=== PATIENT | female | born 1960 | race Caucasian/White ===

== ENCOUNTER 2016-12-28 08:12 | Inpatient (IN) ==
--- NOTE | 2016-11-22 15:16 | EKG Report ---
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
--- NOTE | 2016-11-22 15:32 | XRay Report ---
XR chest 2V Indication: Respiratory preoperative evaluation Comparison: 30 May 2016 Findings: The heart and mediastinum are stable in size and configuration. Moderate size hiatal hernia is present similar to previous study. The pulmonary vascularity is normal in caliber. Lung volumes are increased with prominent bronchial markings. No lung infiltrates, effusions, pneumothorax or other abnormality is demonstrated. Impression: Chronic lung changes. No acute process or significant change. PROCEDURE INTERPRETED AT [facility] DEPARTMENT OF RADIOLOGY Final Report Signed by: Dr. Master Ventura
--- NOTE | 2016-12-28 10:05 | History and Physical Update ---
History and Physical Update - History and Physical H&P was reviewed, the patient examined and there: are no changes in the patients condition since last H&P was completed. - Physical Exam History and Physical Changes: The H&P has an error in that on physical exam it does not describe the mass in the right breast which is replacing most of the central breast. There is deformity of the nipple but no obvious ulceration. The mass is movable. It is about the size of a grapefruit
[2016-12-28] MEDS ORDERED: MINERAL OIL/PETROLATUM OPH OINT 3.5 GM TUBE ONE (10:13)
[2016-12-28] MEDS ORDERED: LIDOCAINE 100 MG/5 ML SYRINGE ONE (10:13)
[2016-12-28] MEDS: LACTATED RINGERS 1,000 ML IV SCH ×2 (10:13→12:06)
[2016-12-28] MEDS ORDERED: ONDANSETRON 4 MG/2 ML VIAL ONE (10:13)
[2016-12-28] MEDS ORDERED: PROPOFOL 200 MG/20 ML VIAL IV ONE (10:13)
--- NOTE | 2016-12-28 12:29 | Operative Note ---
Date of procedure: 12/28/16 Pre-op diagnosis: Large locally advanced right breast cancer 11 x 13 cm Post-op diagnosis: same Procedure: Right modified radical mastectomy (22 modifier) Findings and technique: After informed consent was obtained the patient was brought the operating room placed in supine position. After successful induction of general anesthesia the patient's right chest axilla and upper extremity were prepped and draped in usual sterile fashion. Marking pen was used to juan carlos out the planned ellipse incorporated a large amount of the breast skin and the tumor which measured at 11 x 13 cm. There was no clear ulceration but the nipple was severely deformed and had crusting exudate on it. An elliptical incision was made incorporating most of the breast and flaps were made made superiorly to the level of the clavicle and inferiorly to well beneath the inframammary fold to the rectus muscle. The breast was reflected off of the pectoralis major muscle and some of the muscle was included with the dissection so that I can make sure that I had a good margin posteriorly. Dissection was then carried into the axilla where the patient was not noted to have large lymph nodes but she had very hard matted nodes extending up to behind the pectoralis minor muscle. These lymphatics were divided and dissection carried along the inferior aspect of the axillary vein dividing lymphatics between hemoclips. The thoracodorsal vessels and nerves were identified along the long thoracic nerve and intercostal brachial nerve. All of the structures were identified and preserved and dissection carried out removing the matted lymph node package out of the axillary space. This was removed en bloc with the tumor and breast and sent for permanent section. This area was liberally irrigated. Good hemostasis obtained in the lymph node bed coated with Tisseel tissue sealant. I then placed 10 mm JOHNNIE drains one in the axilla and one beneath the superior flap and I had undermined more than usual to get closure of the large defect. This was done with a deep layer of interrupted 2-0 Vicryl subcutaneous and subdermal suture and the skin with skin clips. She appeared to tolerate the procedure well. This was a much more difficult procedure than usual because of the large size of the tumor and the need to take muscle and the difficulty of the axillary dissection. These factors added to the complexity of the case and also probably doubled the expected operative time. Anesthesia: GETA Surgeon / Physician: Kaleb Diggs III. Estimated blood loss: other (75 mL) Specimens: other (Right breast and axillary contents) Condition: stable Disposition: PACU Discharge Plan - Discharge Medications No Action Folic Acid Tab 800 mcg PO DAILY FLUoxetine [PROzac] 20 mg PO DAILY predniSONE TAB [PredniSONE] 20 mg PO DAILY Zolpidem Tartrate [Ambien] 10 mg PO BEDTIME PRN PRN Reason: Sleep Eculizumab [Soliris] 300 mg IV DIRECTED HYDROcodone/ACETAMIN 7.5-325 [[place] 7.5-325] 1 - 2 tablet PO Q4H PRN #60 tablet PRN Reason: Pain Moderate (4-7) Rivaroxaban [Xarelto] 20 mg PO DAILY W/SUPPER Anastrozole 1 mg PO DAILY - Follow Up or Referral - Forms/Instructions
[2016-12-28] MEDS ORDERED: HYDROmorphone 2 MG/1 ML VIAL IV PRN (12:32)
[2016-12-28] MEDS ORDERED: ONDANSETRON 4 MG/2 ML VIAL IV PRN (12:32)
[2016-12-28] MEDS: MORPHINE PCA 30 MG/30 ML SYRINGE IV SCH (12:41)
--- NOTE | 2016-12-28 16:17 | Anesthesia Post-Op ---
Anesthesia Post OP - Post Ansesthetic Evaluation Patient seen in post op: Yes Resp: within normal limits CV: within normal limits Mental: within normal limits Temp: within normal limits [id number]: within normal limits Nausea and Vomiting: within normal limits Pain: within normal limits
[2016-12-28] MEDS: ceFAZolin 2,000 MG in PREMIX 1 EACH IV SCH (19:03)
[2016-12-28] MEDS: ONDANSETRON 4 MG/2 ML VIAL IV PRN (22:42)
[2016-12-29] MEDS: ceFAZolin 2,000 MG in PREMIX 1 EACH IV SCH (02:15)
[2016-12-29 06:56] LABS: Basophils % 0.4 % (0.0-0.8); Eosinophils % 0.4 % (0.00-10.9); Hematocrit 23.1 VOL% (35.7-47.0); Immature Granulocytes % 0.4 %; Immature Granulocytes Absolute 0.02 #; Lymphocytes # 2.5 10*3/uL (1.4-4.0); Mean Corpuscular HGB Conc 30.3 GM/DL (32-36); Mean Corpuscular Hemoglobin 37 PG (27-34); Mean Corpuscular Volume 122.9 FL (87-102); Mean Platelet Volume 12.4 FL (9.6-12.0); Monocytes # 0.4 10*3/uL (0.11-0.8); Monocytes % 7.6 % (1.7-12.7); NRBC # 1.62 10*3/uL; Neutrophils # 2.5 10*3/uL (1.4-7.4); Neutrophils % 45.2 % (38.7-73.9); Red Blood Count 1.88 MC/CUMM (3.8-5.5); Red Cell Distribution Width 20.4 % (9.3-17.3); White Blood Count 5.5 T/CUMM (4-12)
[2016-12-29 07:07] LABS: Platelet Count 76 T/CUMM (130-400)
[2016-12-29 07:22] LABS: Calcium 7.7 MG/DL (8.5-10.1); Osmolality,Calculated 287.1 MOS/KG (273-304); Potassium 3.8 MMOL/L (3.5-5.1)
[2016-12-29 07:32] LABS: Band Neutrophils 11 % (0-10); Hypochromasia 1+; Lymphocytes 40 % (20-55); Macrocytosis 1+; Nucleated Red Blood Cells 30 (0-5); Segmented Neutrophils 40 % (50-85); Total Cells Counted 100
[2016-12-29 07:33] LABS: Platelet Estimate Decreased; Polychromasia Few
[2016-12-29] MEDS: PANTOPRAZOLE 40 MG TABLET PO SCH (08:29)
[2016-12-29] MEDS: FLUoxetine 20 MG CAPSULE PO SCH (08:29)
[2016-12-29] MEDS: ANASTROZOLE 1 MG TABLET PO SCH (08:29)
[2016-12-29] MEDS: predniSONE 20 MG TABLET PO SCH (08:29)
[2016-12-29] MEDS: ONDANSETRON 4 MG/2 ML VIAL IV PRN ×3 (08:40→17:09)
--- NOTE | 2016-12-29 09:57 | Event Note ---
She is a little bit tachycardic and had one episode where she coughed up some blood during the night which is probably from her endotracheal tube. She has had no further problems with this. I looked under dressing and she has no hematoma and her flaps look good and I see no evidence of bleeding. She is anemic and this is been a chronic problem for her and apparently she has required transfusions with previous operations. We have been holding her Xarelto. I would like to get this started back soon because of her PMH. Discussed her case with Dr. Germain I am going to go ahead and transfuse a couple of units of blood since she is running low and is a little tachycardic. I do not see signs of active bleeding.
[2016-12-29] MEDS ORDERED: SODIUM CHLORIDE 0.9% 250 ML IV PRN (10:11)
[2016-12-29] MEDS ORDERED: IRON SUCROSE 200 MG in SODIUM CHLORIDE 0.9% 100 ML IV SCH (10:30)
--- NOTE | 2016-12-29 12:04 | Hospitalist Consult Note ---
Assessment and Plan (1) Anticoagulation adequate with anticoagulant therapy Status: Acute Assessment and plan: We will monitor coagulation status. Will recheck INR in a.m. Current Visit: No (2) Paroxysmal nocturnal hemoglobinuria (PNH) Status: Acute Assessment and plan: Hemoglobin and hematocrit noted at 7.0 and 23.1. We will type and screen and transfuse 2 units of packed red blood cells. Will recheck CBC in a.m. Current Visit: No History of Present Illness - Consult Narrative Reason for consult: Medical management History of present illness: This is a very pleasant 56-year-old female that presented to [facility] on December 28, 2016 for right modified radical mastectomy. The patient has a medical history significant for: Paroxysmal nocturnal hemoglobinuria, right breast cancer with metastatic disease, rheumatoid arthritis, anxiety, depression, deep vein thrombosis, pneumonia, and renal calculi. Patient has a surgical history significant for lithotripsy in laser eye surgery. The patient was diagnosed in May 2016; through ultrasound- guided biopsy. The patient was subsequently started on chemotherapy in which she was noted to have minimal response; however she was noted to have metastasis. On December 28, 2016, the patient underwent an uncomplicated right modified radical mastectomy under the direction of Dr. Diggs. Due to the complexity of her medical history, we will consulted to medically manage the patient during the clinical encounter. CC: Kaleb Diggs III., - Home Medications and Allergies Home Medications: Home Medications Medication Instructions Recorded Confirmed Type Eculizumab [Soliris] 300 mg IV Q14D 09/27/15 12/28/16 History FLUoxetine [PROzac] 20 mg PO DAILY 09/27/15 12/28/16 History Folic Acid Tab 800 mcg PO DAILY 09/27/15 12/28/16 History Zolpidem Tartrate [Ambien] 10 mg PO BEDTIME PRN 09/27/15 12/28/16 History predniSONE TAB [PredniSONE] 20 mg PO DAILY 09/27/15 12/28/16 History HYDROcodone/ACETAMIN 7.5-325 1 - 2 tablet PO Q4H PRN #60 tablet 10/11/15 Rx [[place] 7.5-325] Anastrozole 1 mg PO DAILY 11/22/16 12/28/16 History Rivaroxaban [Xarelto] 20 mg PO DAILY W/SUPPER 11/22/16 12/28/16 History Allergies/Adverse Reactions: Allergies Allergy/AdvReac Type Severity Reaction Status Date / Time No Known Allergies Allergy Verified 11/22/16 14:42 Medical,Surgical,& Family Hx - Medical History Cardio: History of: Cardiac Dysrhythmia (A fib), Cardiovascular Problems (heart murmur) Psychological: History of: Anxiety Disorders, Depression Neurology: No history of: Seizures HEENT: History of: Eye Problem (reading glasses), Dental Problems (upper partial ) Rheumatology: History of;: Rheumatoid Arthritis Respiratory: History of: Pneumonia (past history), Respiratory Problems ( OCCASIONAL SOB. FLU VAC- NO; PNEU VAC- NO.) Genitourinary: History of: Kidney Stones Gastrointestinal: History of: GI Problems (STOMACH PAIN; HIATAL HERNIA) Musculoskeletal: History of: Back/Neck Problems (BACK PAIN; [facility] DR SCOTT INJECTIONS 1 YR+ AGO.), Osteoporosis Hematology: History of: Anemia, Clotting Problems (blood clot left leg 19 yrs ago), Blood Disorders (parioximal noctural hemoglobinurea) No history of: Blood Transfusion Reaction Reproductive: History of: Breast Cancer (RT BREAST CA) Other: History of: Skin Problems (right leg wound care for abcess 5 years ago, I and D dr lewis) No history of: Anesthesia Reactions - Surgical History Cardiac Surgeries: Sugical HX of: Vascular Access Devices (mediport) Thoracic Surgeries: Surgical HX of;: Lithotripsy (x1 dr stevens) Patient denies;: Organ Transplant, Lobectomy HEENT Surgeries: Surgical HX of: Eye Surgery (laser bilateral eye) Reproductive Surgeries: Surgical HX of;: Breast Surgery (right radical mastectomy) Orthopedic Surgeries: Surgical HX of;: Implanted Devices, Total Hip Replacement (RT HIP REPLACEMENT) - Family History Family History: Reports;: Family Hypertension (2 sisters), Family Stroke (mother ) - Social History Smoking Status: Never smoker Frequency of Alcohol Use: None Type of Drug Use: None Exam - Constitutional Vitals: Period Temp Pulse Resp BP Sys/Silverio Pulse Ox Last 24 Hr 97.0 F-100.2 F 67-122 12-20 85-149/52-78 92-100 General appearance: normal weight - Head Head exam: Present: normal inspection, normocephalic, atraumatic - Eye Eye exam: Present: EOMI. Absent: conjunctival injection Pupils: Present: BRANDEE, normal accommodation - ENT ENT exam: Present: normal exam, normal external ear exam, normal oropharynx - Neck Neck exam: Present: normal inspection. Absent: lymphadenopathy, meningismus, tenderness, thyromegaly - Respiratory Respiratory exam: Present: clear to auscultation bilaterally. Absent: rales, rhonchi, stridor, wheezes - Cardiovascular Cardiovascular exam: Present: regular rate and rhythm, other (Status post right mastectomy). Absent: carotid bruit, diastolic murmur, gallop, JVD, rubs - GI/Abdominal GI/Abdominal exam: Present: soft, other (nausea) - Extremities Exam Extremities exam: Present: normal inspection, normal capillary refill, full ROM. Absent: edema - Back Exam Back exam: Present: normal inspection - Neurological Exam Neurological exam: Present: alert, oriented X3, CN II-XII intact - Psychiatric Psychiatric exam: Present: normal affect, normal mood - Skin Skin exam: Present: other (Jaundice) Results - Labs CBC & BMP: 12/29/16 05:52 12/29/16 05:52 Lab Results: I have reviewed the past 24 hour labs Quality Measures - VTE Contraindication to Pharmacological VTE Prophylaxis: High Risk of Bleeding Specialty Discharge - Follow Up or Referrals Follow up with: Kaleb Diggs III., MD [Physician] - 01/04/17 2:15 pm
[2016-12-29] MEDS ORDERED: MORPHINE 2 MG/1 ML SYRINGE IV PRN (14:55)
[2016-12-29] MEDS ORDERED: HYDROmorphone 2 MG/1 ML VIAL IV PRN (15:53)
[2016-12-29] MEDS: MORPHINE PCA 30 MG/30 ML SYRINGE IV SCH (19:16)
[2016-12-30 03:58] LABS: Basophils % 0.2 % (0.0-0.8); Hematocrit 29.5 VOL% (35.7-47.0); Hemoglobin 9.5 GM/DL (12.0-16.0); Immature Granulocytes % 0.7 %; Immature Granulocytes Absolute 0.03 #; Lymphocytes % 22.5 % (21.3-54.2); Mean Corpuscular HGB Conc 32.2 GM/DL (32-36); Mean Corpuscular Hemoglobin 33 PG (27-34); Mean Platelet Volume 12.3 FL (9.6-12.0); Monocytes # 0.3 10*3/uL (0.11-0.8); Monocytes % 5.9 % (1.7-12.7); NRBC # 0.56 10*3/uL; Neutrophils # 3.2 10*3/uL (1.4-7.4); Neutrophils % 70.7 % (38.7-73.9); Platelet Count 66 T/CUMM (130-400); Red Blood Count 2.92 MC/CUMM (3.8-5.5); Red Cell Distribution Width 27.9 % (9.3-17.3); White Blood Count 4.6 T/CUMM (4-12)
[2016-12-30 04:20] LABS: Albumin 2.6 G/DL (3.4-5.0); Calcium 7.3 MG/DL (8.5-10.1); Magnesium 2.5 MG/DL (1.8-2.4); Osmolality,Calculated 280.4 MOS/KG (273-304); Phosphorous 1.4 MG/DL (2.5-4.9); Potassium 3.8 MMOL/L (3.5-5.1); Total Protein 4.8 G/DL (6.4-8.3)
[2016-12-30 04:27] LABS: Folate 13.5 NG/ML (5.4-24.0); Vitamin B12 711 PG/ML (211-911)
[2016-12-30 04:29] LABS: % Iron Saturation 77.7 % (18-50); Albumin 2.7 G/DL (3.4-5.0); Bilirubin,Direct 1.6 MG/DL (0.0-0.20); Bilirubin,Indirect 2.8 MG/DL (0.0-1.0); Bilirubin,Total 4.4 MG/DL (0.2-1.0); Ferritin 16800.1 ng/ml (8-252); Total Protein 4.7 G/DL (6.4-8.3)
[2016-12-30 04:34] LABS: Band Neutrophils 10 % (0-10); Eosinophils 1 % (0-10); Lymphocytes 20 % (20-55); Metamyelocytes 2 %; Nucleated Red Blood Cells 12 (0-5); Segmented Neutrophils 63 % (50-85); Total Cells Counted 100
[2016-12-30 04:35] LABS: Platelet Estimate Decreased
[2016-12-30 04:36] LABS: Anisocytosis 1+; Basophilic Stippling 1+; Polychromasia 2+
[2016-12-30 04:37] LABS: Schistocytes Few
--- NOTE | 2016-12-30 07:05 | Discharge Summary ---
Hospital Course - Hospital Course Hospital Course: This patient was admitted following a right modified radical mastectomy for breast cancer done by Dr. Diggs on 12/28/2016. She developed some hemoptysis postoperative day #0 but this resolved on its own. She does have a history of PNH and she had some low blood counts and was transfused. She did respond appropriately to this and her Xarelto was restarted on discharge. Her platelet count has been low in the past and it was at 66,000 on the day of discharge which was not that far off from the day prior. She had no evidence of active bleeding and her pain is well controlled. She was discharged home with home health for JOHNNIE drain care and follow-up with Dr. Diggs next week for management of her surgical sites. Specialty Discharge - Follow Up or Referrals Follow up with: Kaleb Diggs III., MD [Physician] - 01/04/17 2:15 pm Discharge Plan - Discharge Data Disposition: Disch To Home/Self Care Condition at Discharge: Stable Discharge Diet: advance to your usual diet Activity: resume usual activities as tolerated Hygiene: may shower Weight Bearing at Discharge: full weight bearing Driving: other (Do not drive or operate heavy machinery for at least 24 hours and after you are off of narcotic pain medications.) Contact your physician if you experience:: fever over 101, Difficulty voiding, Redness or swelling, Nausea/Vomiting, Shortness of breath, Bleeding, pain uncontrolled by pain medications Wound / Dressing Care Instructions: It is okay to shower but do not submerge the incision under water. Cover the wound with a compressive dressing and wear an Daniel wrap or a tight fitting sports bra to keep compression on the wound. Strip JOHNNIE drains 3 times daily and empty bulbs as needed to keep suction on the bulb. Record output each time to empty it and note the date and time that you emptied. Bring this with you to the clinic for follow-up appointment. - Discharge Medications New HYDROcodone/ACETAMIN 7.5-325 [[place] 7.5-325] 1 tablet PO Q4H PRN #30 tablet PRN Reason: Pain Moderate To Severe (4-10) Continue FLUoxetine [PROzac] 20 mg PO DAILY predniSONE TAB [PredniSONE] 20 mg PO DAILY Zolpidem Tartrate [Ambien] 10 mg PO BEDTIME PRN PRN Reason: Sleep Eculizumab [Soliris] 300 mg IV Q14D HYDROcodone/ACETAMIN 7.5-325 [[place] 7.5-325] 1 - 2 tablet PO Q4H PRN #60 tablet PRN Reason: Pain Moderate (4-7) Rivaroxaban [Xarelto] 20 mg PO DAILY W/SUPPER Anastrozole 1 mg PO DAILY No Action Folic Acid Tab 800 mcg PO DAILY - Follow Up or Referral Follow Up: Kaleb Diggs III., MD [Physician] - 01/04/17 2:15 pm - Forms/Instructions Exam - Constitutional Vitals: Period Temp Pulse Resp BP Sys/Silverio Pulse Ox Last 24 Hr 96.9 F-100.2 F 89-118 17-20 85-115/52-72 92-98 General appearance: normal weight, no acute distress - Head Head exam: Present: normal inspection, normocephalic - Eye Eye exam: Present: EOMI Pupils: Present: BRANDEE - ENT ENT exam: Present: normal exam - Neck Neck exam: Present: normal inspection - Respiratory Respiratory exam: Present: clear to auscultation bilaterally. Absent: accessory muscle use, chest wall tenderness - Cardiovascular Cardiovascular exam: Present: regular rate and rhythm. Absent: systolic murmur , tachycardia - GI/Abdominal GI/Abdominal exam: Present: soft. Absent: tenderness, rebound - Extremities Exam Extremities exam: Present: normal inspection, normal capillary refill - Neurological Exam Neurological exam: Present: alert, oriented X3 - Psychiatric Psychiatric exam: Present: normal affect, normal mood - Skin Skin exam: Present: normal color, warm, other (There are no petechial hemorrhages on the body. The right chest wall incision is healing well with no evidence of bleeding or infection. The JOHNNIE drains have serosanguineous output and no active bleeding seen there either.). Absent: petechiae Discharge Results Procedures and tests throughout hospitalization: Pending Orders 12/30/16 02:51 Folate IN AM Hemoglobin Electrophoresis IN AM Vitamin B12 IN AM Labs on day of discharge: Labs from last 24 hours 12/30/16 12/30/16 12/30/16 02:51 02:51 02:51 WBC RBC Hgb Hct MCV MCH MCHC RDW Plt Count MPV Neut % (Auto) Lymph % (Auto) Arthur % (Auto) Eos % (Auto) Baso % (Auto) Neut # (Auto) Lymph # (Auto) Arthur # (Auto) Eos # (Auto) Baso # (Auto) Total Counted Immature Gran % Nucleated RBC % Immature Gran # Segmented Neutrophils Band Neutrophils Lymphocytes Monocytes Eosinophils Metamyelocytes Nucleated RBCs Nucleated RBCs # Platelet Estimate Polychromasia Hypochromasia Basophilic Stippling Anisocytosis Macrocytosis Schistocytes Morphology Comment Absolute Retic 0.3 Percent Retic 9.4 H Retic Hgb Equivalent 35.2 Sodium Potassium Chloride Carbon Dioxide Anion Gap BUN Creatinine GFR Calculation BUN/Creatinine Ratio Glucose Calculated Osmolality Calcium Phosphorus Magnesium Iron 150 TIBC 193 L % Saturation 77.7 H Ferritin 56907.1 H Total Bilirubin 4.40 H Direct Bilirubin 1.60 H Indirect Bilirubin 2.8 H AST 282 H ALT 167 H Alkaline Phosphatase 279 H Total Protein 4.7 L Albumin 2.7 L Globulin Albumin/Globulin Ratio Vitamin B12 711 Folate 13.5 Blood Type Antibody Screen Crossmatch Blood Bank Comment 12/30/16 12/30/16 12/29/16 02:51 02:51 10:17 WBC 4.6 RBC 2.92 L D Hgb 9.5 L D Hct 29.5 L MCV 101.0 MCH 33 MCHC 32.2 RDW 27.9 H Plt Count 66 L MPV 12.3 H Neut % (Auto) 70.7 Lymph % (Auto) 22.5 Arthur % (Auto) 5.9 Eos % (Auto) 0.0 Baso % (Auto) 0.2 Neut # (Auto) 3.2 Lymph # (Auto) 1.0 L Arthur # (Auto) 0.3 Eos # (Auto) 0.0 Baso # (Auto) 0.0 Total Counted 100 Immature Gran % 0.7 Nucleated RBC % 12.3 Immature Gran # 0.03 Segmented Neutrophils 63 Band Neutrophils 10 Lymphocytes 20 Monocytes 4 Eosinophils 1 Metamyelocytes 2 Nucleated RBCs 12 H Nucleated RBCs # 0.56 Platelet Estimate Decreased Polychromasia 2+ Hypochromasia Basophilic Stippling 1+ Anisocytosis 1+ Macrocytosis Schistocytes Few Morphology Comment Absolute Retic Percent Retic Retic Hgb Equivalent Sodium 140 Potassium 3.8 Chloride 106 Carbon Dioxide 24 Anion Gap 13.8 BUN 20 H Creatinine 0.70 GFR Calculation 97 BUN/Creatinine Ratio 28.00 H Glucose 82 Calculated Osmolality 280.4 Calcium 7.3 L Phosphorus 1.4 L Magnesium 2.5 H Iron TIBC % Saturation Ferritin Total Bilirubin 4.00 H Direct Bilirubin Indirect Bilirubin AST 273 H ALT 170 H Alkaline Phosphatase 280 H Total Protein 4.8 L Albumin 2.6 L Globulin 2.2 L Albumin/Globulin Ratio 1.1 Vitamin B12 Folate Blood Type Cancelled Antibody Screen Cancelled Crossmatch See Detail Blood Bank Comment Cancelled 12/29/16 12/29/16 12/29/16 05:52 05:52 05:50 WBC 5.5 RBC 1.88 L Hgb 7.0 L Hct 23.1 L MCV 122.9 H MCH 37 H MCHC 30.3 L RDW 20.4 H Plt Count 76 L MPV 12.4 H Neut % (Auto) 45.2 Lymph % (Auto) 46.0 Arthur % (Auto) 7.6 Eos % (Auto) 0.4 Baso % (Auto) 0.4 Neut # (Auto) 2.5 Lymph # (Auto) 2.5 Arthur # (Auto) 0.4 Eos # (Auto) 0.0 Baso # (Auto) 0.0 Total Counted 100 Immature Gran % 0.4 Nucleated RBC % 29.5 Immature Gran # 0.02 Segmented Neutrophils 40 L Band Neutrophils 11 H Lymphocytes 40 Monocytes 9 Eosinophils Metamyelocytes Nucleated RBCs 30 H Nucleated RBCs # 1.62 Platelet Estimate Decreased Polychromasia Few Hypochromasia 1+ Basophilic Stippling Anisocytosis Macrocytosis 1+ Schistocytes Morphology Comment Absolute Retic Percent Retic Retic Hgb Equivalent Sodium 142 Potassium 3.8 Chloride 107 Carbon Dioxide 23 Anion Gap 15.8 H BUN 29 H Creatinine 0.90 GFR Calculation 71 BUN/Creatinine Ratio 32.00 H Glucose 85 Calculated Osmolality 287.1 Calcium 7.7 L Phosphorus Magnesium Iron TIBC % Saturation Ferritin Total Bilirubin Direct Bilirubin Indirect Bilirubin AST ALT Alkaline Phosphatase Total Protein Albumin Globulin Albumin/Globulin Ratio Vitamin B12 Folate Blood Type A POSITIVE Antibody Screen Negative Crossmatch Blood Bank Comment DS: Provider Date of admission: 12/29/16 10:25 Primary care physician: Abraham Flores MD Attending physician on admission: Kaleb Diggs III., Consults: 12/28/16 12:30 Consult to Physician [CONS] Routine 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: 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 Provider: Consulting Provider Notified: Yes When should Consulting Provider be notified: Now Consult to Specialist Group: Hospitalist When should Consulting Provider be notified: Now Person Notified: bart garcia Date Notified: 12/29/16 Time Notified: 09:39 12/28/16 14:26 Consult to Pastoral Services [CONS] Routine Comment: Pastoral Screen: Request Appraisal Coordinator Visit Pastoral Screen Source of Request: Patient 12/29/16 08:58 Consult to Case Mgmt/Social Srvs [CONS] Routine Reason for Case Mgmt/Social Srvs: Home Health Consult Comment: drain mgmt; wound care Discharging clinician: Silas Huff MD Expected date of discharge: 12/30/16
[2016-12-30] MEDS: PANTOPRAZOLE 40 MG TABLET PO SCH (08:59)
[2016-12-30] MEDS: predniSONE 20 MG TABLET PO SCH (08:59)
[2016-12-30] MEDS: ANASTROZOLE 1 MG TABLET PO SCH (08:59)
[2016-12-30] MEDS: FLUoxetine 20 MG CAPSULE PO SCH (08:59)
[2016-12-30] MEDS: ONDANSETRON 4 MG/2 ML VIAL IV PRN (10:00)
[2016-12-30 12:02] VITALS: BP 111/66
[2017-01-01 06:20] LABS: Hemoglobin A1 (Alkaline) 98.1 % (96.5-98.5); Hemoglobin A2 (Alkaline) 1.9 % (1.5-3.5)
--- NOTE | 2017-01-01 12:18 | Pathology Report from [facility] ---
[facility] ACCESSION # : [id number] PATIENT NAME : Crystal Jaquez ORDERING DR : GARY CARCAMO III, MD CLINICAL HX: Right breast cancer POST-OP DX: Same SPECIMEN INFO: Right beast and axillary contents GROSS DESCRIPTION: The specimen is received in formalin labeled with the patients name CRYSTAL JAQUEZ and consists of a right breast modified mastectomy which measures 18.5 x 12.0 x 6.5 cm with an overlying ellipse of pink -quintero skin which measures 18.0 x 9.8 cm. The nipple is somewhat retracted and firm. Sectioning the breast reveals a 6.5 x 6.5 cm tumor mass which is situated in the central aspect of the breast and which grossly comes to within 2.0 cm of the deep margin with a portion of axillary tissue attached to the breast measuring 11.0 x 3.0 cm with lymph nodes submitted following fixation. Sections submitted: A nipple and skin, B deep margin, C and D tumor, E&F-Lymph nodes.Note: Time in formalin is before 12:00 noon 12/28/2016. Time out of formalin is 6:00 PM on 12/28/2016. DIAGNOSIS FOR CRYSTAL JAQUEZ: RIGHT BREAST, MODIFIED MASTECTOMY, (Intact, 18.5 x 12.0 x 6.5 cm) WITH AXILLARY NODES: TUMOR TYPE: Invasive lobular carcinoma TUMOR SITE: Central breast TUMOR SIZE: 65 x 65 x 50 mm. ASHLEY GRADE II (tubules = 3, pleomorphism = 2, mitoses = 5 MF/ 10 HPF) TUMOR MARGINS: DEEP margin positive for carcinoma. DCIS: Absent LYMPH-VASCULAR INVASION: Present. SKIN INVOLVEMENT: Present with dermal involvement without ulceration ; Satellite nodules Not present SKELETAL MUSCLE: Pectoralis muscle invasion present LYMPH NODES: Total lymph nodes present (sentinel & non sentinel): 12; Total sentinel nodes: 0. Lymph nodes with macrometastases (>2 mm) =10 ; micrometastases (>0.2 mm to 2 mm):2; isolated tumor cells (<0.2 mm ): 5. Extranodal extension: Present. AJCC PATHOLOGIC STAGE: IIIC ([id number] )Hormonal Studies [id number] = ER+/ME-/Her2-/KI67 38% COLLECTED DATE: 12/28/2016 [facility] REPORT DATE: 01/01/2017 ELECTRONICALLY SIGNED BY: Brooks Lara III, M.D. 01/01/2017 - 8:18:15 MTDD
--- NOTE | 2017-01-02 08:13 | Physician Query Form ---
CLICK EDIT DOCUMENT TO SELECT QUERY ANSWER --> OK --> SIGN Adelina Estrada RN, CCDS Certified Clinical Blender Laborer W) [phone] (F) [phone] [email or web address] PROVIDERS: Make your selection(s) from the choices in EACH section by typing an "x" and enter comments in the comment section. Please use your independent medical judgment in providing your response. This request does not imply that any particular answer is desired or expected. CLINICAL INDICATORS: (Providers should not edit this section) Pathology Findings: DIAGNOSIS FOR DEYANIRA JAQUEZ: RIGHT BREAST, MODIFIED MASTECTOMY, (Intact, 18.5 x 12.0 x 6.5 cm) WITH AXILLARY NODES: TUMOR TYPE: Invasive lobular carcinoma TUMOR SITE: Central breast TUMOR SIZE: 65 x 65 x 50 mm. ASHLEY GRADE II (tubules = 3, pleomorphism = 2, mitoses = 5 MF/ 10 HPF) TUMOR MARGINS: DEEP margin positive for carcinoma. DCIS: Absent LYMPH-VASCULAR INVASION: Present. SKIN INVOLVEMENT: Present with dermal involvement without ulceration ; Satellite nodules Not present SKELETAL MUSCLE: Pectoralis muscle invasion present LYMPH NODES: Total lymph nodes present (sentinel & non sentinel): 12; Total sentinel nodes: 0. Lymph nodes with macrometastases (>2 mm) =10 ; micrometastases (>0.2 mm to 2 mm):2; isolated tumor cells (<0.2 mm ): 5. Extranodal extension: Present. AJCC PATHOLOGIC STAGE: IIIC ([id number] )Hormonal Studies [id number] = ER+/SD-/Her2-/KI67 38% Abnormal Pathology findings are not reported unless an authorized provider indicates their clinical significance Please select the best choice: ( ) I agree with the Pathology findings ( ) I disagree with the Pathology findings ( ) No clinical significance ( ) Other/clarification of findings, please specify: ( ) Clinically unable to determine COMMENTS: PLEASE ALSO DOCUMENT RESPONSE IN PROGRESS NOTES AND/OR DISCHARGE SUMMARY Use of terms such as suspected, likely, or probable (associated with a specific diagnosis that is being evaluated, monitored, or treated as if it exists) are acceptable and can be restated in the discharge summary if not ruled out. [facility]
--- NOTE | 2017-01-22 09:02 | Physician Query Form ---
CLICK EDIT DOCUMENT TO SELECT QUERY ANSWER --> OK --> SIGN Aedlina Estrada RN, CCDS Certified Clinical Coordinator Volunteer Services W) [phone] (F) [phone] [email or web address] PROVIDERS: Make your selection(s) from the choices in EACH section by typing an "x" and enter comments in the comment section. Please use your independent medical judgment in providing your response. This request does not imply that any particular answer is desired or expected. CLINICAL INDICATORS: (Providers should not edit this section) Pathology Findings: DIAGNOSIS FOR DEYANIRA JAQUEZ: RIGHT BREAST, MODIFIED MASTECTOMY, (Intact, 18.5 x 12.0 x 6.5 cm) WITH AXILLARY NODES: TUMOR TYPE: Invasive lobular carcinoma TUMOR SITE: Central breast TUMOR SIZE: 65 x 65 x 50 mm. ASHLEY GRADE II (tubules = 3, pleomorphism = 2, mitoses = 5 MF/ 10 HPF) TUMOR MARGINS: DEEP margin positive for carcinoma. DCIS: Absent LYMPH-VASCULAR INVASION: Present. SKIN INVOLVEMENT: Present with dermal involvement without ulceration ; Satellite nodules Not present SKELETAL MUSCLE: Pectoralis muscle invasion present LYMPH NODES: Total lymph nodes present (sentinel & non sentinel): 12; Total sentinel nodes: 0. Lymph nodes with macrometastases (>2 mm) =10 ; micrometastases (>0.2 mm to 2 mm):2; isolated tumor cells (<0.2 mm ): 5. Extranodal extension: Present. AJCC PATHOLOGIC STAGE: IIIC ([id number] )Hormonal Studies [id number] = ER+/CA-/Her2-/KI67 38% Abnormal Pathology findings are not reported unless an authorized provider indicates their clinical significance Please select the best choice: ( ) I agree with the Pathology findings ( ) I disagree with the Pathology findings ( ) No clinical significance ( ) Other/clarification of findings, please specify: ( ) Clinically unable to determine COMMENTS: PLEASE ALSO DOCUMENT RESPONSE IN PROGRESS NOTES AND/OR DISCHARGE SUMMARY Use of terms such as suspected, likely, or probable (associated with a specific diagnosis that is being evaluated, monitored, or treated as if it exists) are acceptable and can be restated in the discharge summary if not ruled out. [facility]
== END 2016-12-30 12:50 | disposition home health service (06) | DRG 582 ==
LOC: N.OR 08:12 → N.SDSINP 08:14 → N.3E 14:09
PROVIDERS: ADMIT Surgery; ATTEND Surgery

== ENCOUNTER 2017-01-25 12:25 | Inpatient (IN) ==
--- NOTE | 2017-01-25 13:16 | Emergency Department Note ---
Dale Hand Brooke, am scribing for, and in the presence of, Arnav Scott MD 13 :11. Sonia Hand Charles R, MD, personally performed the services described in this documentation, ascribed by Janice Hunter in my presence, and it is both accurate and complete 316 . Arrival - Arrival Chief Complaint: Non-Specific Stated Complaint: swollen stomach ED Nursing Triage Note: Pt c/o swelling of her lower ext and abd x 4 wks after she had a Mastectomy by Dr Caterina ARRIAGA. Pt had a CT and U/S last Sunday by Dr Flores. Mode of Arrival: Wheelchair Limitations: No Limitations Source: Patient, Significant other, RN Notes Reviewed Time Seen by Provider: 01/25/17 12:40 - History of Present Illness HPI Narrative: Patient is a 56 year old female who presents to the ED with c/o abdominal and lower extremity edema. Patient says she had a mastectomy, four weeks ago, due to breast cancer and the edema started afterwards. She says the edema is worsening with time. She says her abdomen is very painful and she states "I can' t eat much." Patient also complains of having shortness of breath and is jaundice. Patient denies any pruritus or confusion. Patient went to [facility], Sunday, and had a CT and ultrasound done. She says the results showed "fluid around the liver." Patient says Dr. Fagan was supposed to be contacted about "drawing some fluid out" but they have not heard anything. Patient says all of the cancer was not removed by having the mastectomy done. Her breast cancer has metastasized to her bones. She is not currently doing chemotherapy. Patient also has PMHx of anxiety, depression, heart murmur, RA, pneumonia, kidney stones, hiatal hernia, back/neck problems. osteoporosis, anemia, DVT, and Parioximal noctural hemoglobinurea. Dr. Germain oversees the metastatic breast cancer and is not aware of todays problems. Dr. Flores oversees the [facility]. Patient is currently taking Zarelto. Onset (ago): week(s) (4) Allergies/Adverse Reactions: Allergies Allergy/AdvReac Type Severity Reaction Status Date / Time No Known Allergies Allergy Verified 11/22/16 14:42 Home Medications: Home Medications Medication Instructions Recorded Confirmed Type Folic Acid Tab 800 mcg PO DAILY 09/27/15 01/25/17 History predniSONE TAB [PredniSONE] 20 mg PO DAILY 09/27/15 01/25/17 History Anastrozole 1 mg PO DAILY 11/22/16 01/25/17 History Rivaroxaban [Xarelto] 20 mg PO DAILY W/SUPPER 11/22/16 01/25/17 History Ondansetron Odt Tab [Zofran Odt] 4 mg PO Q6H PRN 01/25/17 01/25/17 History oxyCODONE IR [Roxicodone] 5 - 10 mg PO Q4H PRN 01/25/17 01/25/17 History Review of System - Review of System 12 point system: reviewed and no additional remarkable complaints except as stated - Review of System Constitutional: Absent: fever Respiratory: Present: other (shortness of breath). Absent: respiratory distress Gastrointestinal: Present: abdominal pain (ascities) Skin: Present: change in color (jaundice), other (Edema of the lower extremities ). Absent: rash, pruritus Neurological: Absent: confusion Medical,Surgical,& Family Hx - Medical History Cardio: History of: Cardiac Dysrhythmia (A fib), Cardiovascular Problems (heart murmur) Psychological: History of: Anxiety Disorders, Depression Neurology: No history of: Seizures HEENT: History of: Eye Problem (reading glasses), Dental Problems (upper partial ) Rheumatology: History of;: Rheumatoid Arthritis Respiratory: History of: Pneumonia (past history), Respiratory Problems ( OCCASIONAL SOB. FLU VAC- NO; PNEU VAC- NO.) Genitourinary: History of: Kidney Stones Gastrointestinal: History of: GI Problems (STOMACH PAIN; HIATAL HERNIA) Musculoskeletal: History of: Back/Neck Problems (BACK PAIN; [facility] DR SCOTT INJECTIONS 1 YR+ AGO.), Osteoporosis Hematology: History of: Anemia, Clotting Problems (blood clot left leg 19 yrs ago), Blood Disorders (parioximal noctural hemoglobinurea) No history of: Blood Transfusion Reaction Reproductive: History of: Breast Cancer (RT BREAST CA) Other: History of: Skin Problems (right leg wound care for abcess 5 years ago, I and D dr lewis) No history of: Anesthesia Reactions - Surgical History Cardiac Surgeries: Sugical HX of: Vascular Access Devices (mediport) Thoracic Surgeries: Surgical HX of;: Lithotripsy (x1 dr stevens) Patient denies;: Organ Transplant, Lobectomy HEENT Surgeries: Surgical HX of: Eye Surgery (laser bilateral eye) Reproductive Surgeries: Surgical HX of;: Breast Surgery (right radical mastectomy) Orthopedic Surgeries: Surgical HX of;: Implanted Devices, Total Hip Replacement (RT HIP REPLACEMENT) - Family History Family History: Reports;: Family Hypertension (2 sisters), Family Stroke (mother ) - Social History Smoking Status: Never smoker Exam Vital Signs: Vital Signs Temperature 97.8 F 01/25/17 13:10 Pulse Rate 102 H 01/25/17 13:10 Respiratory Rate 01/25/17 13:10 Blood Pressure 102/74 01/25/17 13:10 O2 Sat by Pulse Oximetry 98 01/25/17 12:25 - General General appearance: alert, in no apparent distress, other (Cushingoid effect) - Head Head exam: Present: atraumatic, normocephalic - Eye Eye exam: Present: PERRL, EOMI, scleral icterus - ENT ENT exam: Present: normal exam - Neck Neck exam: Present: normal inspection - Chest Chest inspection: Present: normal inspection, symmetric chest wall rise - Respiratory Respiratory exam: Present: rales (bilateral) - Cardiovascular Cardiovascular exam: Present: normal rhythm, tachycardia, murmur - Abdominal Exam Abdominal exam: Present: distention, hyperactive bowel sounds, ascites. Absent : soft, tenderness - Extremities Exam Extremities exam: Present: pedal edema (3+ pitting edema bilateral lower extremities) - Back Exam Back exam: Present: normal inspection - Neurological Exam Neurological exam: Present: alert, oriented X3 - Psychiatric Psychiatric exam: Present: normal affect, normal mood - Skin Skin exam: Present: warm, dry, intact, other (anasarca from the abdomen, down.) . Absent: normal color (Jaundice) Course - Reevaluation(s) Reevaluation #1: Patient reexamined. Patient sit on the side of the bed in no acute distress. She has no abdominal pain at this time just abdominal bloating with ascites. I explained to her all the problems are going on with her with possibility of acute cholecystitis liver failure just related to her PNH and her breast cancer which I do not think is causing any of the symptoms right now. Patient placed in the hospital with additional workup consult interventional radiology in the morning consult GI in the morning and Dr. Germain will look at her in the morning as well patient placed on antibiotics to cover for a type infection and watch closely Time: 18:02 - Consultations Consultation #1: spoke to Dr Flores who treats her PNH, patient also has breast cancer. Patient presents emergency room complaining of shortness of breath swelling in her abdomen jaundice and abdominal pain. According to Dr. Flores this could be possibly fulminant liver failure due to her PNH. He recommended getting labs admitted to the hospital for abdominal paracentesis and a MRI of her abdomen pelvis Time: 13:16 Consultation #2: Dr Germain will admit patient Time: 17:52 Results - Labs CBC & BMP: 01/25/17 13:37 01/25/17 13:37 Lab Results: I have reviewed the patients labs Labs: Laboratory Tests 01/25/17 13:37 WBC 6.1 RBC 3.25 L Hgb 11.2 L Hct 33.9 L MCV 104.3 H MCH 35 H MCHC 33.0 RDW 27.2 H Plt Count 55 L MPV 13.1 H Neut % (Auto) 72.7 Lymph % (Auto) 20.0 L Lassen % (Auto) 6.1 Eos % (Auto) 0.2 Baso % (Auto) 0.0 Neut # (Auto) 4.4 Lymph # (Auto) 1.2 L Lassen # (Auto) 0.4 Eos # (Auto) 0.0 Baso # (Auto) 0.0 Immature Gran % 1.0 Nucleated RBC % 8.1 Immature Gran # 0.06 Nucleated RBCs # 0.49 Laboratory Tests 01/25/17 01/25/17 01/25/17 13:37 13:37 13:37 INR 1.5 PT Patient/Control Mix 16.7 D Fibrinogen 256 Circ Anticoag PTT 47.1 H D Lactate Dehydrogenase 533 H Laboratory Tests 01/25/17 01/25/17 01/25/17 13:37 13:37 13:37 Polychromasia Slight Microcytosis Slight Macrocytosis 1+ Target Cells Slight Elliptocytes Few Sodium 137 Potassium 3.8 Chloride 104 Carbon Dioxide 22 Anion Gap 14.8 BUN 18 Creatinine 0.60 GFR Calculation 102 BUN/Creatinine Ratio 30.00 H Glucose 105 Calculated Osmolality 274.8 Lactic Acid 3.1 H Calcium 8.1 L Magnesium 2.2 Total Bilirubin 6.20 H AST 310 H ALT 168 H Alkaline Phosphatase 539 H Ammonia Pending B-Natriuretic Peptide 140 H Total Protein 5.0 L Albumin 2.4 L Globulin 2.6 Albumin/Globulin Ratio 0.9 L Amylase 164 H Lipase 776.0 H - Diagnostic Findings Procedure: Abdominal x-ray: report reviewed by me (Nonspecific bowel gas pattern. No evidence of obstruction. Ascities. Gallstones. Osseous changes suggestive of metastatic disease.), Chest x-ray: report reviewed by me ( Expiratory chest. Moderate areas of scattered atelectasis. Prominent hiatal hernia.) Critical Care Time Critical Care Time: Yes Total Critical Care Time: 60 Disposition Clinical Impression: Paroxysmal nocturnal hemoglobinuria (PNH), Scleral icterus, Ascites, Liver failure, Cholelithiasis, Hyperbilirubinemia, Abdominal pain, Pleural effusion, Breast cancer, Elevated liver enzymes, Jaundice, Thrombocytopenia, Pancreatitis Case discussed with: patient, patient's family Disposition: Still a Patient Condition: Guarded Time of Disposition: 18:00
[2017-01-25 13:46] LABS: Eosinophils % 0.2 % (0.00-10.9); Hematocrit 33.9 VOL% (35.7-47.0); Hemoglobin 11.2 GM/DL (12.0-16.0); Immature Granulocytes Absolute 0.06 #; Lymphocytes # 1.2 10*3/uL (1.4-4.0); Mean Corpuscular Hemoglobin 35 PG (27-34); Mean Corpuscular Volume 104.3 FL (87-102); Mean Platelet Volume 13.1 FL (9.6-12.0); Monocytes # 0.4 10*3/uL (0.11-0.8); Monocytes % 6.1 % (1.7-12.7); NRBC # 0.49 10*3/uL; Neutrophils # 4.4 10*3/uL (1.4-7.4); Neutrophils % 72.7 % (38.7-73.9); Platelet Count 55 T/CUMM (130-400); Red Blood Count 3.25 MC/CUMM (3.8-5.5); Red Cell Distribution Width 27.2 % (9.3-17.3); White Blood Count 6.1 T/CUMM (4-12)
[2017-01-25 13:55] LABS: INR 1.5; PT Patient Result 16.7 SECS
[2017-01-25 13:58] LABS: Partial Thromboplastin Time 47.1 SECS (0-40)
--- NOTE | 2017-01-25 14:04 | XRay Report ---
Portable chest. Indication: Shortness of breath. Comparison: November 22, 2016. The lung volumes are small. There is a prominent hiatal hernia. The heart size is normal. The pulmonary vasculature is normal. Areas of scattered atelectasis are present in each mid and lower lung field. Distal tip of a Chemo-Port is in the right atrium. Surgical clips are present in the right axilla, and there has been a right mastectomy. Impression: Expiratory chest. Moderate areas of scattered atelectasis. Prominent hiatal hernia. PROCEDURE INTERPRETED AT [facility] DEPARTMENT OF RADIOLOGY Final Report Signed by: Dr. Janey Arredondo
--- NOTE | 2017-01-25 14:07 | XRay Report ---
2 view abdomen. Indication: Abdominal pain and ascites. Comparison: August 14, 2011. The heart is normal in size. There is a hiatal hernia present. There are multiple calcifications present in the right upper quadrant. Previous CT showed these to represent gallstones. No splenic enlargement. There is air in mildly dilated small intestine, with very little colon gas. No distention. Vascular calcifications are seen within the pelvis. There are multiple spinal compression fractures visible. There is mixed density to the bones of the spine and pelvis, suggestive of metastatic disease. There has been a right hip replacement. There is prominent loss of joint space and osteophyte formation at the left hip. Impression: Nonspecific bowel gas pattern. No evidence of obstruction. Ascites. Gallstones. Osseous changes suggestive of metastatic disease. PROCEDURE INTERPRETED AT [facility] DEPARTMENT OF RADIOLOGY Final Report Signed by: Dr. Janey Arredondo
[2017-01-25 14:16] LABS: Albumin 2.4 G/DL (3.4-5.0); Bilirubin,Total 6.2 MG/DL (0.2-1.0); Calcium 8.1 MG/DL (8.5-10.1); Magnesium 2.2 MG/DL (1.8-2.4); Osmolality,Calculated 274.8 MOS/KG (273-304); Potassium 3.8 MMOL/L (3.5-5.1)
[2017-01-25 14:31] LABS: Macrocytosis 1+; Microcytosis Slight; Polychromasia Slight; Target Cells Slight
[2017-01-25 14:32] LABS: Elliptocytes Few
[2017-01-25 14:40] LABS: Lactic Acid 3.1 MMOL/L (0.4-2.0)
[2017-01-25] MEDS ORDERED: SODIUM CHLORIDE 0.9% 500 ML IV STA (18:09)
[2017-01-25] MEDS ORDERED: cefTRIAXone 1,000 MG in SODIUM CHLORIDE 0.9% 100 ML IV STA (18:09)
[2017-01-25] MEDS ORDERED: cefTRIAXone 1,000 MG VIAL ONE (18:14)
[2017-01-25] MEDS ORDERED: ACETAMINOPHEN 325 MG TABLET PO PRN (21:08)
[2017-01-25] MEDS ORDERED: MAGNESIUM HYDROXIDE SUSP 30 ML UDCUP PO PRN (21:08)
[2017-01-25] MEDS ORDERED: MYLANTA/LIDO VISC 2:1 300 ML BOTTLE SWISH/SPIT PRN (21:08)
[2017-01-25] MEDS ORDERED: ONDANSETRON 4 MG/2 ML VIAL IV PRN (21:08)
[2017-01-25] MEDS ORDERED: chlorproMAZINE INJ 50 MG in SODIUM CHLORIDE 0.9% 100 ML IV PRN (21:08)
[2017-01-25] MEDS ORDERED: chlorproMAZINE 25 MG TABLET PO PRN (21:08)
[2017-01-25] MEDS ORDERED: guaiFENesin 200 MG/10 ML UDCUP PO PRN (21:08)
[2017-01-25] MEDS ORDERED: ONDANSETRON ODT 4 MG TABLET PO PRN (21:08)
[2017-01-25] MEDS ORDERED: MYLANTA/LIDO VISC 2:1 300 ML BOTTLE SWISH/SWAL PRN (21:08)
[2017-01-25] MEDS ORDERED: traMADol 50 MG TABLET PO PRN (21:08)
[2017-01-25] MEDS ORDERED: diphenhydrAMINE CAP 25 MG CAPSULE PO PRN (21:08)
[2017-01-25] MEDS ORDERED: LACTULOSE 20 GM/30 ML UDCUP PO PRN (21:08)
[2017-01-25] MEDS ORDERED: PROMETHAZINE INJ 25 MG in SODIUM CHLORIDE 0.9% 50 ML IV PRN (21:08)
[2017-01-25] MEDS ORDERED: LOPERAMIDE 2 MG CAPSULE PO PRN ×2 (21:08)
[2017-01-25] MEDS ORDERED: SODIUM CHLORIDE 0.9% 1,000 ML IV SCH ×2 (21:08→23:30)
[2017-01-25] MEDS ORDERED: BENZTROPINE 2 MG/2 ML AMP IV PRN (21:08)
[2017-01-25] MEDS ORDERED: chlorproMAZINE INJ 25 MG in SODIUM CHLORIDE 0.9% 100 ML IV PRN (21:08)
[2017-01-25] MEDS ORDERED: ALUMINUM/MAGNES/SIMETH MAX STR 30 ML UDCUP PO PRN (21:08)
[2017-01-25] MEDS ORDERED: ALPRAZolam 0.25 MG TABLET PO PRN (21:08)
[2017-01-25] MEDS: metroNIDAZOLE INJ 500 MG in PREMIX 1 EACH IV SCH (21:59)
[2017-01-25 22:25] LABS: Basophils % 0.2 % (0.0-0.8); Eosinophils % 0.2 % (0.00-10.9); Hematocrit 33.5 VOL% (35.7-47.0); Hemoglobin 10.9 GM/DL (12.0-16.0); Immature Granulocytes Absolute 0.06 #; Lymphocytes # 1.5 10*3/uL (1.4-4.0); Lymphocytes % 25.3 % (21.3-54.2); Mean Corpuscular HGB Conc 32.5 GM/DL (32-36); Mean Corpuscular Hemoglobin 34 PG (27-34); Mean Corpuscular Volume 105.3 FL (87-102); Mean Platelet Volume 12.5 FL (9.6-12.0); Monocytes # 0.6 10*3/uL (0.11-0.8); Monocytes % 9.5 % (1.7-12.7); Neutrophils # 3.7 10*3/uL (1.4-7.4); Neutrophils % 63.8 % (38.7-73.9); Platelet Count 55 T/CUMM (130-400); Red Blood Count 3.18 MC/CUMM (3.8-5.5); Red Cell Distribution Width 27.4 % (9.3-17.3); White Blood Count 5.8 T/CUMM (4-12)
[2017-01-25 22:58] LABS: Magnesium 2.3 MG/DL (1.8-2.4); Uric Acid 6.6 MG/DL (2.6-6.0)
[2017-01-25 23:00] LABS: Albumin 2.3 G/DL (3.4-5.0); Calcium 7.7 MG/DL (8.5-10.1); Osmolality,Calculated 274.8 MOS/KG (273-304); Potassium 3.7 MMOL/L (3.5-5.1); Total Protein 4.8 G/DL (6.4-8.3)
[2017-01-25 23:49] LABS: Lymphocytes 18 % (20-55); Nucleated Red Blood Cells 4 (0-5); Segmented Neutrophils 81 % (50-85); Total Cells Counted 100
[2017-01-25 23:50] LABS: Acanthocytes Few; Anisocytosis 1+; Howell-Jolly Bodies Few; Platelet Estimate Decreased
[2017-01-26] MEDS: TEMAZEPAM 7.5 MG CAPSULE PO PRN ×3 (00:37→21:45)
[2017-01-26 01:55] LABS: Apearance,Urine CLEAR (Clear); Bacteria,Urine Occasional /HPF (Few); Bilirubin,Urine Moderate mg/dL (Negative); Blood, Urine Negative (Negative); Glucose,Urine (UA) Negative (Negative); Ketones,Urine Negative (Negative); Mucus,Urine Few /LPF (Occasional); Nitrite,Urine Negative (Negative); Protein,Urine Negative; RBC,Urine 4 /HPF (0-4); Squamous Epithelial Cell,Urine Occasional /HPF (0-10); Urine Color Amber (Yellow); Urine Specific Gravity 1.021 (1.001-1.035); WBC,Urine 67 /HPF (0-6)
[2017-01-26] MEDS: metroNIDAZOLE INJ 500 MG in PREMIX 1 EACH IV SCH ×3 (06:32→21:46)
[2017-01-26 07:24] LABS: INR 1.6; PT Patient Result 16.9 SECS
--- NOTE | 2017-01-26 08:03 | XRay Report ---
XR abdomen 2V Indication: Generalized abdominal pain Comparison: Abdominal x-ray dated January 25, 2017 Technique: Frontal views of the abdomen in the supine and upright position. Findings: Nonspecific bowel gas pattern. Much of the abdomen is essentially gasless. Cholelithiasis again suggested. Visualized osseous and surrounding soft tissue structures appear grossly unchanged. Diffuse osseous sclerosis/lucency suspicious for metastatic disease. Mild compression deformities of several lower thoracic and upper lumbar vertebral bodies. Total right hip prosthesis. Severe degenerative change of the left hip. IMPRESSION: As above. PROCEDURE INTERPRETED AT [facility] DEPARTMENT OF RADIOLOGY Final Report Signed by: Dr Gusatvo Rivera
--- NOTE | 2017-01-26 08:51 | XRay Report ---
XR chest 2V Indication: Shortness of breath Comparison: Chest x-ray dated January 25, 2017 Technique: Frontal and lateral views of the chest. Findings: Mild cardiomegaly. Port catheter appears grossly unchanged. Scattered linear pulmonary scarring again suspected which is lower lung predominant. Hazy opacification within the right lower lung appears grossly unchanged and may reflect consolidative process such as pneumonia. Small left pleural effusion. Visualized osseous and surrounding soft tissue structures appear grossly unchanged. Mottled appearance of the bones again suspicious for metastatic disease. Several vertebral compression deformities again demonstrated. IMPRESSION: As above. PROCEDURE INTERPRETED AT [facility] DEPARTMENT OF RADIOLOGY Final Report Signed by: Dr Gustavo Rivera
[2017-01-26] MEDS ORDERED: ANASTROZOLE 1 MG TABLET PO SCH (09:00)
[2017-01-26] MEDS ORDERED: oxyCODONE IR 5 MG TABLET PO PRN (09:35)
--- NOTE | 2017-01-26 09:35 | Oncology History&Physical ---
Assessment and Plan (1) Liver failure Status: Acute Assessment and plan: The patient is known to have iron overload as well secondary to her underlying hematologic disorder. At this point I feel she has acute on chronic liver dysfunction. I am not certain how much of this is reversible. I do feel that tumor progression is causing a significant contribution. Interventional radiology has been consulted for paracentesis with plans to hold Xarelto. Protein studies and cytology will be paramount from this sample. I will need to give Lovenox in the interim. Gastroenterology has been consulted and if unable to assist with the liver then consideration towards her odynophagia should be given. Will give IV Protonix while hospitalized. I have discontinued her IV fluids and will need to begin a regular diuretic regimen Current Visit: Yes History of Present Illness Chief complaint: Elevated liver function History of present illness: Ms. Sandhu is a 56 year old female Admitted through [facility] yesterday with elevated bilirubin. Her history is notable for metastatic breast cancer previously bone only disease. The patient was receiving aromatase inhibitor. She presented initially with a large right sided breast mass. Intravenous chemotherapy was given for several cycles with stable disease noted. The patient did eventually undergo a right mastectomy approximately 4 weeks ago though this was in the setting of known and biopsy-proven metastatic disease in the bone. I discussed the case yesterday with Dr. Vazquez who is her physician of record regarding her paroxysmal nocturnal hemoglobinuria. The patient has been receiving intravenous Soliris every 2 weeks for approximately 8-9 years. 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 She states there was a period of perhaps 4-5 days around the time of her operation that her Xarelto was not given. I do not know any alternative anticoagulation was given. There was a concern last week on January 19 within the portal vein. The patient has developed ascites and abnormal liver function. Also reviewed was a CT scan performed near the same day at [facility]. This was compared to April and again significant change of the liver was noted with a nodular contour. Positive ascites. No definite thrombosis was noted on the CT scan. Many of the liver lesions do appear hypodense on ultrasound, which argues against cyst formation. The patient is also additionally reporting postprandial epigastric pain. She is known to have a rather large hiatal hernia 8.[address] scan. My last bilirubin of record was 2.0 on November 22. The patient does have an elevated CEA as used for tumor marker purposes. Home Medications Medication Instructions Recorded Confirmed Type Folic Acid Tab 800 mcg PO DAILY 09/27/15 01/26/17 History predniSONE TAB [PredniSONE] 20 mg PO DAILY 09/27/15 01/26/17 History Anastrozole 1 mg PO DAILY 11/22/16 01/26/17 History Rivaroxaban [Xarelto] 20 mg PO DAILY W/SUPPER 11/22/16 01/26/17 History Ondansetron Odt Tab [Zofran Odt] 4 mg PO Q6H PRN 01/25/17 01/26/17 History oxyCODONE IR [Roxicodone] 5 - 10 mg PO Q4H PRN 01/25/17 01/26/17 History Allergies Allergy/AdvReac Type Severity Reaction Status Date / Time No Known Allergies Allergy Verified 11/22/16 14:42 Medical,Surgical,& Family Hx - Medical History Cardio: History of: Cardiac Dysrhythmia (A fib), Cardiovascular Problems (heart murmur) Psychological: History of: Anxiety Disorders, Depression Neurology: No history of: Seizures HEENT: History of: Eye Problem (reading glasses), Dental Problems (upper partial ) Rheumatology: History of;: Rheumatoid Arthritis Respiratory: History of: Pneumonia (past history), Respiratory Problems ( OCCASIONAL SOB. FLU VAC- NO; PNEU VAC- NO.) Genitourinary: History of: Kidney Stones Gastrointestinal: History of: GI Problems (STOMACH PAIN; HIATAL HERNIA) Musculoskeletal: History of: Back/Neck Problems (BACK PAIN; [facility] DR SCOTT INJECTIONS 1 YR+ AGO.), Osteoporosis Hematology: History of: Anemia, Clotting Problems (blood clot left leg 19 yrs ago), Blood Disorders (parioximal noctural hemoglobinurea) No history of: Blood Transfusion Reaction Reproductive: History of: Breast Cancer (RT BREAST CA) Other: History of: Skin Problems (right leg wound care for abcess 5 years ago, I and D dr lewis) No history of: Anesthesia Reactions - Surgical History Cardiac Surgeries: Sugical HX of: Vascular Access Devices (mediport) Thoracic Surgeries: Surgical HX of;: Lithotripsy (x1 dr stevens) Patient denies;: Organ Transplant, Lobectomy HEENT Surgeries: Surgical HX of: Eye Surgery (laser bilateral eye) Reproductive Surgeries: Surgical HX of;: Breast Surgery (right radical mastectomy) Orthopedic Surgeries: Surgical HX of;: Implanted Devices, Total Hip Replacement (RT HIP REPLACEMENT) - Family History Family History: Reports;: Family Cancer (breast CA mother), Family Hypertension (2 sisters), Family Stroke (mother) - Social History Smoking Status: Never smoker - Constitutional Constitutional: Present: fatigue, malaise, weakness. Absent: fever(s), increased appetite - EENT Eye: Absent: loss of vision Ears: Absent: ear discharge, ear pain Nose, mouth and throat: Present: odynophagia, sore throat. Absent: neck mass, neck pain - Cardiovascular Cardiovascular ROS IM: Present: edema - Respiratory Respiratory: Present: dyspnea - Gastrointestinal Gastrointestinal: Present: constipation. Absent: diarrhea - Genitourinary Genitourinary ROS female: Absent: difficulty urinating, dysuria - Psychiatric Psychiatric General: Absent: anxiety, confusion Exam - Constitutional Vitals: Period Temp Pulse Resp BP Sys/Silverio Pulse Ox Last 24 Hr 97.2 F-98 F 83-102 16-20 102-125/59-74 21-98 General appearance: no acute distress - Head Head Exam: Present: normocephalic, atraumatic - Eye Eye Exam: Present: EOMI, scleral icterus. Absent: conjunctival injection, periorbital swelling Pupils: Present: PERRL, normal accommodation - ENT ENT exam: Present: normal external ear exam - Neck Neck exam: Present: normal inspection. Absent: lymphadenopathy - Respiratory Respiratory exam: Present: CTAB. Absent: accessory muscle use, chest wall tenderness - Cardiovascular Cardiovascular exam: Present: RRR - GI/Abdominal GI/Abdominal exam: Present: ascites, distended, firm. Absent: guarding, hyperactive bowel sounds, tenderness - Neurological Exam Neurological exam: Present: alert, oriented X3 - Psychiatric Psychiatric exam: Present: normal affect, normal mood - Skin Skin exam: Present: warm, dry Results - Labs CBC & BMP: 01/25/17 21:44 01/25/17 21:44
[2017-01-26] MEDS: PANTOPRAZOLE 40 MG VIAL IV SCH (09:45)
--- NOTE | 2017-01-26 09:50 | Gastrointestinal Consult Note ---
Assessment and Plan (1) Elevated liver enzymes Status: Acute Assessment and plan: 01/26-findings of elevated LFTs with associated abdominal pain and ascites. CT and ultrasound findings noted as below. Notation of normal LFTs in clinic in November of this year with Dr. Germain. Noted to have elevated enzymes in December following mastectomy which her father elevated on this admission. Father plan an addendum to followed by Dr. Tyler. Current Visit: Yes (2) Abdominal pain Status: Acute Assessment and plan: 01/26-to three-week history of right upper quadrant abdominal pain with associated nausea and decreased intake. Findings noted on imaging of cholelithiasis with normal common bile duct and questionable cholecystitis. Elevated LFTs and lipase noted. Xarelto with last dose on Sunday. For paracentesis today for findings of ascites. Plan an addendum followed by Dr. Tyler. Current Visit: Yes History of Present Illness Chief complaint: Abdominal pain, elevated LFTs History of present illness: Ms. Sandhu is a 56 year old female who was admitted to the hospital on yesterday with complaints of abdominal pain, swelling in abdomen and legs. 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 Patient has a history of breast cancer in which she underwent 4 rounds of chemotherapy in May of last year which was followed by a mastectomy approximately [address] Diggs. 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 Patient states that following surgery she noted that she began to have some increased swelling in her abdomen and lower extremities. She also began to complain of some right upper quadrant abdominal pain following meals with some associated nausea without vomiting. Patient states that every time she eats she is unable to eat very much and this exacerbates her pain and nausea. She denies any fever, chills or night sweats. She does state at times she has some difficulty with swallowing as well some mild pain however not every time she eats. She is noted on discharge and she to have elevated LFTs at that time with bilirubin at 4.4, AST 282, ALT 167, alkaline phosphatase 279. On admission yesterday her bilirubin is elevated at 6.0, AST 281, ALT 156, alkaline phosphatase at 522. She is also noted to have an elevated LDH of 478. Lipase is noted at 776. She presented to [facility] initially and at that time had a CT of the abdomen with contrast on as well as three-phase liver scan with findings of nodular liver contour with numerous low-density hepatic lesions which with possible demonstration of testing deposits with notation of liver changes noted since 04/11/16 scan. Patient is also noted to have gallstones. She also had ultrasound abdomen which also showed lobular hepatic borders secondary to cirrhosis however are likely secondary to metastatic disease with multiple cholelithiasis and gallbladder wall thickening with a normal common bile duct at 3.4 mm. She is also noted to have ascites with occluded portal vein possibly secondary to thrombus or tumor. Patient takes Xarelto at home but reports her last dose to be on Sunday has not received it since this time. Home Medications Medication Instructions Recorded Confirmed Type Folic Acid Tab 800 mcg PO DAILY 09/27/15 01/26/17 History predniSONE TAB [PredniSONE] 20 mg PO DAILY 09/27/15 01/26/17 History Anastrozole 1 mg PO DAILY 11/22/16 01/26/17 History Rivaroxaban [Xarelto] 20 mg PO DAILY W/SUPPER 11/22/16 01/26/17 History Ondansetron Odt Tab [Zofran Odt] 4 mg PO Q6H PRN 01/25/17 01/26/17 History oxyCODONE IR [Roxicodone] 5 - 10 mg PO Q4H PRN 01/25/17 01/26/17 History Allergies Allergy/AdvReac Type Severity Reaction Status Date / Time No Known Allergies Allergy Verified 11/22/16 14:42 Medical,Surgical,& Family Hx - Medical History Cardio: History of: Cardiac Dysrhythmia (A fib), Cardiovascular Problems (heart murmur) Psychological: History of: Anxiety Disorders, Depression Neurology: No history of: Seizures HEENT: History of: Eye Problem (reading glasses), Dental Problems (upper partial ) Rheumatology: History of;: Rheumatoid Arthritis Respiratory: History of: Pneumonia (past history), Respiratory Problems ( OCCASIONAL SOB. FLU VAC- NO; PNEU VAC- NO.) Genitourinary: History of: Kidney Stones Gastrointestinal: History of: GI Problems (STOMACH PAIN; HIATAL HERNIA) Musculoskeletal: History of: Back/Neck Problems (BACK PAIN; [facility] DR TYLER INJECTIONS 1 YR+ AGO.), Osteoporosis Hematology: History of: Anemia, Clotting Problems (blood clot left leg 19 yrs ago), Blood Disorders (parioximal noctural hemoglobinurea) No history of: Blood Transfusion Reaction Reproductive: History of: Breast Cancer (RT BREAST CA) Other: History of: Skin Problems (right leg wound care for abcess 5 years ago, I and D dr lewis) No history of: Anesthesia Reactions - Surgical History Cardiac Surgeries: Sugical HX of: Vascular Access Devices (mediport) Thoracic Surgeries: Surgical HX of;: Lithotripsy (x1 dr stevens) Patient denies;: Organ Transplant, Lobectomy HEENT Surgeries: Surgical HX of: Eye Surgery (laser bilateral eye) Reproductive Surgeries: Surgical HX of;: Breast Surgery (right radical mastectomy) Orthopedic Surgeries: Surgical HX of;: Implanted Devices, Total Hip Replacement (RT HIP REPLACEMENT) - Family History Family History: Reports;: Family Cancer (breast CA mother), Family Hypertension (2 sisters), Family Stroke (mother) - Social History Smoking Status: Never smoker 12 point system: reviewed and no additional remarkable complaints except as stated - Constitutional Constitutional: Present: as per HPI - EENT Eyes: Present: as per HPI Ears: Present: as per HPI Nose, mouth and throat: Present: as per HPI - Cardiovascular Cardiovascular: Present: as per HPI - Respiratory Respiratory: Present: as per HPI - Gastrointestinal Gastrointestinal: Present: as per HPI, abdominal pain, bloating - Genitourinary Genitourinary: Present: as per HPI - Musculoskeletal Musculoskeletal: Present: as per HPI - Neurological Neurological: Present: as per HPI - Psychiatric Psychiatric: Present: as per HPI - Endocrine Endocrine: Present: as per HPI - Hematologic/Lymphatic Hematologic/Lymphatic: Present: as per HPI Exam - Constitutional Vitals: Period Temp Pulse Resp BP Sys/Silverio Pulse Ox Last 24 Hr 97.2 F-98 F 83-102 16-20 102-125/59-74 21-98 General appearance: normal weight, no acute distress - Head Head exam: Present: normal inspection, normocephalic - Eye Eye exam: Present: other (lids and conjunctiva unremarkable). Absent: scleral icterus - ENT ENT exam: Present: normal exam, normal oropharynx - Neck Neck exam: Present: normal inspection - Respiratory Respiratory exam: Present: clear to auscultation bilaterally. Absent: rales, rhonchi, wheezes - Cardiovascular Cardiovascular exam: Present: regular rate and rhythm. Absent: diastolic murmur , JVD, systolic murmur - GI/Abdominal GI/Abdominal exam: Present: normal bowel sounds, ascites, tenderness (RUQ), soft. Absent: distended, mass, organomegaly - Extremities Exam Extremities exam: Present: normal inspection, full ROM - Back Exam Back exam: Present: normal inspection - Neurological Exam Neurological exam: Present: alert, oriented X3 - Psychiatric Psychiatric exam: Present: normal affect, normal mood - Skin Skin exam: Present: normal color, warm, dry Results - Labs CBC & BMP: 01/25/17 21:44 01/25/17 21:44 Lab Results: I have reviewed the past 24 hour labs
[2017-01-26] MEDS ORDERED: SPIRONOLACTONE 25 MG TABLET PO SCH (10:00)
[2017-01-26] MEDS: predniSONE 20 MG TABLET PO SCH ×2 (10:35→16:38)
[2017-01-26] MEDS: FOLIC ACID 0.4 MG TABLET PO SCH ×2 (10:35→16:38)
--- NOTE | 2017-01-26 15:53 | History and Physical Update ---
History and Physical Update - History and Physical H&P was reviewed, the patient examined and there: are no changes in the patients condition since last H&P was completed. - Physical Exam Mental Status: alert and oriented Heart: regular rate and rhythm Lung: clear to auscultation Abdomen: other (Distended, soft and nontender) Vitals: within normal limits
--- NOTE | 2017-01-26 16:21 | Operative Note ---
Date of procedure: 01/26/17 Pre-op diagnosis: New onset ascites Procedure: Procedure: Diagnostic paracentesis Brief clinical abstract: Patient is a 56-year-old female with paroxysmal nocturnal hemoglobinuria diagnosed around 20 years ago and also breast cancer diagnosed within the last year with recent progression of disease with bone and possible liver metastases. She is admitted with recent onset jaundice, new onset ascites, and intermittent upper abdominal pain. Her common bile duct was not dilated on outside ultrasound or CT. Procedure findings: After informed consent was obtained, patient was placed in the supine position. Right lower quadrant of the abdomen was prepped in sterile manner. 10 cc of 1% lidocaine was injected subcutaneously down to the level of the peritoneum. A 16-gauge 1.5 inch needle was inserted into the peritoneal space. A total of 250 cc of clear, straw colored fluid was obtained using vacuum bottle. I repositioned her into more right lateral decubitus position but could not obtain more fluid. The needle was withdrawn and patient appeared to tolerate the procedure well. Dressing was applied to the site afterwards. Recommendations: Await diagnostic studies from above. Resume anticoagulation. Anesthesia: local Surgeon / Physician: Hubert Tyler Estimated blood loss: minimal Specimens: other (Ascites fluid sent for diagnostic studies) Condition: stable Disposition: no change Results - Labs CBC & BMP: 01/25/17 21:44 01/25/17 21:44 Discharge Plan - Discharge Medications No Action Folic Acid Tab 800 mcg PO DAILY predniSONE TAB [PredniSONE] 20 mg PO DAILY Ondansetron Odt Tab [Zofran Odt] 4 mg PO Q6H PRN PRN Reason: Nausea oxyCODONE IR [Roxicodone] 5 - 10 mg PO Q4H PRN PRN Reason: Pain Rivaroxaban [Xarelto] 20 mg PO DAILY W/SUPPER Anastrozole 1 mg PO DAILY - Follow Up or Referral - Forms/Instructions
[2017-01-26] MEDS: RIVAROXABAN 15 MG TABLET PO SCH (16:38)
[2017-01-26] MEDS ORDERED: RIVAROXABAN 20 MG TABLET PO SCH (17:00)
[2017-01-26 17:31] LABS: RBC,Peritoneal Fluid 51 T/CUMM
[2017-01-26] MEDS ORDERED: FUROSEMIDE 40 MG TABLET PO ONE (17:49)
--- NOTE | 2017-01-26 17:51 | Event Note ---
Ascites fluid data with elevated serum ascites albumin gradient consistent with portal hypertension etiology. Treat with Aldactone/Lasix and low-sodium diet.
[2017-01-26] MEDS ORDERED: cefTRIAXone 1,000 MG in SODIUM CHLORIDE 0.9% 100 ML IV SCH (18:00)
[2017-01-26 18:19] LABS: Neutrophils,Peritoneal Fluid 5 %
[2017-01-26] MEDS ORDERED: HEPARIN LOCK FLUSH 500 UNIT/5 ML SYRINGE IV ONE (18:26)
[2017-01-26] MEDS ORDERED: ENOXAPARIN 40 MG/0.4 ML SYRINGE SUBCUT SCH (21:00)
[2017-01-27 05:54] LABS: Hematocrit 32.1 VOL% (35.7-47.0); Hemoglobin 10.7 GM/DL (12.0-16.0); Immature Granulocytes % 0.8 %; Immature Granulocytes Absolute 0.04 #; Lymphocytes # 1.1 10*3/uL (1.4-4.0); Lymphocytes % 22.8 % (21.3-54.2); Mean Corpuscular HGB Conc 33.3 GM/DL (32-36); Mean Corpuscular Hemoglobin 35 PG (27-34); Mean Corpuscular Volume 104.9 FL (87-102); Monocytes # 0.4 10*3/uL (0.11-0.8); Monocytes % 8.6 % (1.7-12.7); NRBC # 0.44 10*3/uL; Neutrophils # 3.4 10*3/uL (1.4-7.4); Neutrophils % 67.8 % (38.7-73.9); Platelet Count 55 T/CUMM (130-400); Red Blood Count 3.06 MC/CUMM (3.8-5.5); Red Cell Distribution Width 27.9 % (9.3-17.3)
[2017-01-27] MEDS: metroNIDAZOLE INJ 500 MG in PREMIX 1 EACH IV SCH (07:01)
[2017-01-27 07:24] LABS: Albumin 2.2 G/DL (3.4-5.0); Bilirubin,Total 6.4 MG/DL (0.2-1.0); Calcium 7.6 MG/DL (8.5-10.1); Magnesium 2.4 MG/DL (1.8-2.4); Osmolality,Calculated 277.7 MOS/KG (273-304); Potassium 4.1 MMOL/L (3.5-5.1); Total Protein 4.7 G/DL (6.4-8.3)
[2017-01-27 07:58] LABS: Macrocytosis 1+; Polychromasia Slight
[2017-01-27] MEDS ORDERED: FUROSEMIDE 40 MG TABLET PO SCH (09:00)
[2017-01-27] MEDS ORDERED: SPIRONOLACTONE 25 MG TABLET PO SCH (09:00)
[2017-01-27] MEDS: FOLIC ACID 0.4 MG TABLET PO SCH (09:01)
[2017-01-27] MEDS: predniSONE 20 MG TABLET PO SCH (09:03)
[2017-01-27] MEDS: PANTOPRAZOLE 40 MG VIAL IV SCH (09:04)
[2017-01-27] MEDS: RIVAROXABAN 15 MG TABLET PO SCH (09:05)
[2017-01-27 12:00] VITALS: BP 115/68
--- NOTE | 2017-01-27 15:14 | Discharge Summary ---
Hospital Course - Hospital Course Hospital Course: This patient was admitted through the ER with abdominal distention. There was concern about abdominal pain and possible peritonitis or cholecystitis. These have not proven to be the case. The patient has a nontender abdomen negative blood cultures and no evidence of fever. She has a moderate amount of ascites. She has been seen by gastroenterology who performed a diagnostic paracentesis with protein studies indicative of portal hypertension. Most recent bilirubin approximately 6.5 with INR 1.6. I discussed the case with Dr. Tyler yesterday. I did consider for twice daily Xarelto but after review of drug information this is not been well studied with an moderate to severe hepatic impairment. For this reason I will continue her on 20 mg once daily only. She is to notify us immediately for any evidence of hemorrhage. Regarding her ascites she is instructed on a low-salt diet. She is prescribed Aldactone 50 mg every morning and Lasix 20 mg every morning. Close follow-up is scheduled at my clinic in 4 days from today. Diagnosis - Discharge Diagnosis (1) Liver failure Status: Acute Discharge Plan - Discharge Medications No Action Folic Acid Tab 800 mcg PO DAILY predniSONE TAB [PredniSONE] 20 mg PO DAILY Ondansetron Odt Tab [Zofran Odt] 4 mg PO Q6H PRN PRN Reason: Nausea oxyCODONE IR [Roxicodone] 5 - 10 mg PO Q4H PRN PRN Reason: Pain Rivaroxaban [Xarelto] 20 mg PO DAILY W/SUPPER Anastrozole 1 mg PO DAILY - Follow Up or Referral - Forms/Instructions Exam - Constitutional Vitals: Period Temp Pulse Resp BP Sys/Silverio Pulse Ox Last 24 Hr 96.3 F-98.5 F 89-106 16-22 96-122/57-73 93-97 Discharge Results Procedures and tests throughout hospitalization: Pending Orders 01/25/17 13:50 Blood Culture Stat 01/26/17 Urine Culture Routine 01/26/17 17:11 Cytology Request Routine 01/28/17 04:00 Comp Blood Count Auto Diff IN AM Comprehensive Metabolic Panel IN AM Magnesium IN AM 01/29/17 US paracentesis abd w/image Routine 01/29/17 04:00 Comp Blood Count Auto Diff IN AM Comprehensive Metabolic Panel IN AM Magnesium IN AM Labs on day of discharge: Labs from last 24 hours 01/27/17 01/27/17 01/27/17 04:00 04:00 04:00 WBC 5.0 RBC 3.06 L Hgb 10.7 L Hct 32.1 L MCV 104.9 H MCH 35 H MCHC 33.3 RDW 27.9 H Plt Count 55 L MPV 14.0 H Neut % (Auto) 67.8 Lymph % (Auto) 22.8 Jack % (Auto) 8.6 Eos % (Auto) 0.0 Baso % (Auto) 0.0 Neut # (Auto) 3.4 Lymph # (Auto) 1.1 L Jack # (Auto) 0.4 Eos # (Auto) 0.0 Baso # (Auto) 0.0 Immature Gran % 0.8 Nucleated RBC % 8.8 Immature Gran # 0.04 Nucleated RBCs # 0.44 Polychromasia Slight Macrocytosis 1+ Sodium 138 Potassium 4.1 Chloride 105 Carbon Dioxide 24 Anion Gap 13.1 BUN 17 Creatinine 0.80 GFR Calculation 83 BUN/Creatinine Ratio 21.00 H Glucose 116 H Calculated Osmolality 277.7 Calcium 7.6 L Magnesium 2.4 Total Bilirubin 6.40 H AST 256 H ALT 137 H Alkaline Phosphatase 530 H Total Protein 4.7 L Albumin 2.2 L Globulin 2.5 Albumin/Globulin Ratio 0.8 L Carcinoembryonic Ag 57.7 H Peritoneal WBC Peritoneal RBC Periton Tot Cells Ct Periton Neutrophils Periton Lymphocytes Peritoneal Monocytes Peritoneal Diff Commnt Peritoneal Tot Protein Peritoneal Albumin 01/26/17 01/26/17 01/26/17 16:49 16:49 16:49 WBC RBC Hgb Hct MCV MCH MCHC RDW Plt Count MPV Neut % (Auto) Lymph % (Auto) Jack % (Auto) Eos % (Auto) Baso % (Auto) Neut # (Auto) Lymph # (Auto) Jack # (Auto) Eos # (Auto) Baso # (Auto) Immature Gran % Nucleated RBC % Immature Gran # Nucleated RBCs # Polychromasia Macrocytosis Sodium Potassium Chloride Carbon Dioxide Anion Gap BUN Creatinine GFR Calculation BUN/Creatinine Ratio Glucose Calculated Osmolality Calcium Magnesium Total Bilirubin AST ALT Alkaline Phosphatase Total Protein Albumin Globulin Albumin/Globulin Ratio Carcinoembryonic Ag Peritoneal WBC 43 Peritoneal RBC [address] 100 Periton Neutrophils 5 Periton Lymphocytes 87 Peritoneal Monocytes 8 Peritoneal Diff Commnt Peritoneal Tot Protein < 1.0 Peritoneal Albumin 0.4 Preliminary micro results at discharge 07/21/17 Unknown Urine Culture - Preliminary Urine,Clean Catch No Growth at 24 hours. 01/25/17 13:50 Blood Culture - Preliminary Blood No growth at 1 day 01/25/17 13:50 Blood Culture - Preliminary Blood No growth at 1 day DS: Provider Date of admission: 01/25/17 18:03 Primary care physician: Abraham Flores MD Attending physician on admission: Kash Germain MD Consults: 01/25/17 21:08 Consult to Case Mgmt/Social Srvs [CONS] Routine Reason for Case Mgmt/Social Srvs: Rehab Hospice Referral Consult to Physician [CONS] Routine Comment: Elevated liver enzymes Consulting Provider: Hubert Tyler Consulting Provider Notified: Yes When should Consulting Provider be notified: Now Consult to Specialist Group: Gastroenterology When should Consulting Provider be notified: Now Person Notified: JOSEPH Date Notified: 01/26/17 Time Notified: 08:30 Consult Notification Comment: Discharging clinician: Kash Germain MD
[2017-01-27] MEDS ORDERED: HEPARIN LOCK FLUSH 500 UNIT/5 ML SYRINGE IV ONE (16:01)
--- NOTE | 2017-01-30 14:15 | Pathology Report from [facility] ---
[facility] [place] ACCESSION # : [id number] PATIENT NAME : Crystal Sandhu ORDERING DR : RANJITH MCALLISTER MD CLINICAL HX: Metastatic ca to bone POST-OP DX: Same SPECIMEN INFO: Fluid- Peritoneal, 250 clear yellow CLASS: IV CLASS COMMENTS: Highly atypical cells suspicious for metastatic adenocarcinomaCELL BLOCK: Same CLASS LEGEND: CLASS 0 Material inadequate for diagnosis because of (see comment) CLASS I Absence of atypical or abnormal cells CLASS II Atypical Cytology but no evidence of malignancy CLASS III Cytology suggestive of but not conclusive for malignancy CLASS IV Cytology strongly suggestive of malignancy CLASS V Cytology conclusive for malignancy COLLECTED DATE: 01/29/2017 [facility] REPORT DATE: 01/30/2017 ELECTRONICALLY SIGNED BY: Naa Chan M.D. 01/30/2017 - 8:19:50 [facility]
--- NOTE | 2017-02-01 14:41 | Physician Query Form ---
CLICK EDIT DOCUMENT TO SELECT QUERY ANSWER --> OK --> SIGN Adelina Estrada RN, CCDS Certified Clinical [employer] W) [phone] (f) [phone] [email or web address] PROVIDERS: Make your selection(s) from the choices in EACH section by typing an "x" and enter comments in the comment section. Please use your independent medical judgment in providing your response. This request does not imply that any particular answer is desired or expected. 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 SPECIMEN INFO: Fluid- Peritoneal, 250 clear yellow CLASS: IV CLASS COMMENTS: Highly atypical cells suspicious for metastatic adenocarcinomaCELL BLOCK: Same Abnormal Pathology findings are not reported unless an authorized provider indicates their clinical significance Please select the best choice: ( ) I agree with the Pathology findings ( ) I disagree with the Pathology findings ( ) No clinical significance ( x) Other/clarification of findings, please specify: My job is to treat the diagnosis as rendered by the pathologist ( ) Clinically unable to determine COMMENTS: PLEASE ALSO DOCUMENT RESPONSE IN PROGRESS NOTES AND/OR DISCHARGE SUMMARY Use of terms such as suspected, likely, or probable (associated with a specific diagnosis that is being evaluated, monitored, or treated as if it exists) are acceptable and can be restated in the discharge summary if not ruled out. MTDD
--- NOTE | 2017-02-06 09:09 | Physician Query Form ---
CLICK EDIT DOCUMENT TO SELECT QUERY ANSWER --> OK --> SIGN Vika Rascon RN, CCDS Certified Clinical [employer] W) [phone] (f) [phone] [email or web address] PROVIDERS: Make your selection(s) from the choices in EACH section by typing an "x" and enter comments in the comment section. Please use your independent medical judgment in providing your response. This request does not imply that any particular answer is desired or expected. 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 Please select the best choice: ( x) I agree with the Pathology findings - patient will be treated for metastatic adenocarcinoma you have already documented mets to bone. can you bill for two metastases? ( ) I disagree with the Pathology findings - patient will NOT be treated for metastatic adenocarcinoma ( ) No clinical significance ( ) Other/clarification of findings, please specify: ( ) Clinically unable to determine COMMENTS: PLEASE ALSO DOCUMENT RESPONSE IN PROGRESS NOTES AND/OR DISCHARGE SUMMARY Use of terms such as suspected, likely, or probable (associated with a specific diagnosis that is being evaluated, monitored, or treated as if it exists) are acceptable and can be restated in the discharge summary if not ruled out. MTDD
== END 2017-01-27 16:54 | disposition home health service (06) | DRG 442 ==
LOC: N.ED 12:25 → N.EDINP 18:02 → N.4E 20:53
PROVIDERS: ADMIT Specialist; ATTEND Specialist